=== PATIENT | male | born 1960 | race Caucasian/White ===

== ENCOUNTER 2020-07-26 05:40 | Inpatient (IN) | payer BC, MEDICARE ==
[2020-07-26] MEDS ORDERED: Acetaminophen 500 MG Tab PO ONE (05:45)
[2020-07-26] MEDS ORDERED: Scopolamine 1.5 MG Transdermal Patch TOP SCH (05:45)
[2020-07-26] MEDS ORDERED: Celecoxib 200 MG Cap PO ONE (05:45)
[2020-07-26 06:30] LABS: HEMOGLOBIN A1C 5.3 % (4.5-6.2)
[2020-07-26] MEDS ORDERED: Dextrose 5%-Lactated Ringers 1,000 ML IV SCH ×2 (06:30→10:30)
[2020-07-26] MEDS ORDERED: cefOXitin 2 GM Vial ONE (06:31)
[2020-07-26] MEDS ORDERED: Neostigmine Methylsulfate 1 MG/ML 5 ML Syringe ONE (07:03)
[2020-07-26] MEDS ORDERED: Succinylcholine 200 MG/10 ML MDV ONE (07:03)
[2020-07-26] MEDS ORDERED: Ondansetron 4 MG/2 ML SDV ONE (07:03)
[2020-07-26] MEDS ORDERED: Propofol 200 MG/20 ML SDV ONE (07:03)
[2020-07-26] MEDS ORDERED: Dexamethasone 4 MG/ML SDV ONE (07:03)
[2020-07-26] MEDS ORDERED: Rocuronium 50 MG/5 ML Vial ONE (07:03)
[2020-07-26] MEDS ORDERED: Glycopyrrolate 0.2 MG/ML 5 ML MDV ONE (07:03)
[2020-07-26] MEDS ORDERED: fentaNYL 250 MCG/5 ML SDV ONE ×2 (07:04→07:36)
[2020-07-26] MEDS ORDERED: ceFAZolin 2 GM in Premix Bag 1 BAG IV ONE (07:15)
[2020-07-26] MEDS ORDERED: cefOXitin 2 GM in Sodium Chloride 0.9% 50 ML IV ONE (07:15)
[2020-07-26] MEDS ORDERED: Ketamine 50 MG in Sodium Chloride 0.9% 49.5 ML IV SCH (07:30)
[2020-07-26] MEDS ORDERED: Magnesium Sulfate 5.6 GM in Sodium Chloride 0.9% 250 ML IV ONE (07:30)
[2020-07-26] MEDS ORDERED: Ketamine 500 MG/5 ML MDV IV SCH (07:30)
[2020-07-26] MEDS ORDERED: Magnesium Sulfate 3.5 GM in Sodium Chloride 0.9% 100 ML IV SCH (07:30)
[2020-07-26] MEDS ORDERED: Cyclobenzaprine 10 MG Tab PO PRN (10:26)
[2020-07-26] MEDS ORDERED: Nitroglycerin 0.4 MG Tab.SL SL PRN (10:44)
[2020-07-26] MEDS ORDERED: diphenhydrAMINE 50 MG/ML SDV IVPUSH PRN (11:00)
[2020-07-26] MEDS ORDERED: Insulin Lispro 100 Unit/ML 3 ML KwikPen SUBCUT PRN (11:00)
[2020-07-26] MEDS ORDERED: Calcium Gluconate 10% 1 GM/10 ML SDV IVPUSH PRN (11:00)
[2020-07-26] MEDS ORDERED: HYDROmorphone 0.5 MG/0.5 ML Syringe IVPUSH PRN (11:00)
[2020-07-26] MEDS ORDERED: Ondansetron 4 MG/2 ML SDV IVPUSH PRN (11:00)
[2020-07-26] MEDS ORDERED: 50% Dextrose in Water 50 ML Syringe IVPUSH PRN (11:00)
[2020-07-26] MEDS ORDERED: Acetaminophen 500 MG Tab PO PRN (11:00)
[2020-07-26] MEDS ORDERED: Metoclopramide 10 MG/2 ML SDV IVPUSH PRN (11:00)
[2020-07-26] MEDS ORDERED: HYDROmorphone 1 MG/ML Syringe IV PRN (11:00)
[2020-07-26] MEDS ORDERED: Glucagon,Human Recombinant 1 MG Vial IM PRN (11:00)
[2020-07-26] MEDS ORDERED: hydrOXYzine HCL 100 MG/2 ML SDV IM PRN (11:00)
[2020-07-26] MEDS ORDERED: Labetalol 20 MG/4 ML Syringe IVPUSH PRN (11:00)
[2020-07-26] MEDS: Lactated Ringers 1,000 ML IV SCH (11:23)
[2020-07-26] MEDS: oxyCODONE 5 MG Tab PO PRN ×2 (12:37→18:06)
[2020-07-26] MEDS: Pantoprazole 40 MG Vial IVPUSH SCH (12:38)
[2020-07-26] MEDS: Acetaminophen 500 MG Tab PO SCH ×2 (15:19→22:10)
[2020-07-26] MEDS: cefOXitin 2 GM in Sodium Chloride 0.9% 50 ML IV SCH ×2 (15:19→19:54)
[2020-07-26] MEDS ORDERED: MVI, Adult with Vitamin K 10 ML, Thiamine 200 MG, Zinc/Copper/Manganese/Selenium 1 ML i... IV SCH ×4 (16:00)
[2020-07-26] MEDS: Heparin Sodium 5,000 Units/ML Vial SUBCUT SCH (18:01)
[2020-07-26] MEDS: Venlafaxine 75 MG Tab PO SCH (20:48)
[2020-07-26] MEDS: Carvedilol 12.5 MG Tab PO SCH (20:49)
[2020-07-26] MEDS: Tamsulosin 0.4 MG Cap.ER PO SCH (20:49)
[2020-07-26] MEDS: atorvaSTATin 20 MG Tab PO SCH (20:50)
[2020-07-26] MEDS: ClonazePAM 1 MG Tab PO SCH (21:03)
[2020-07-27] MEDS: Lactated Ringers 1,000 ML IV SCH (00:27)
[2020-07-27] MEDS: oxyCODONE 5 MG Tab PO PRN ×3 (00:31→15:48)
[2020-07-27] MEDS: cefOXitin 2 GM in Sodium Chloride 0.9% 50 ML IV SCH ×3 (01:50→15:42)
[2020-07-27] MEDS ORDERED: Iopamidol 612 MG/ML 50 ML SDV IV PRN (02:44)
[2020-07-27] MEDS: Acetaminophen 500 MG Tab PO SCH ×3 (05:31→22:18)
[2020-07-27] MEDS: Heparin Sodium 5,000 Units/ML Vial SUBCUT SCH ×2 (05:31→18:37)
[2020-07-27] MEDS: Levothyroxine 88 MCG Tab PO SCH (07:38)
[2020-07-27] MEDS ORDERED: Lactated Ringers 1,000 ML IV SCH (08:00)
[2020-07-27] MEDS: SCOPOLAMINE PATCH CHECK TOP SCH (08:38)
[2020-07-27] MEDS: Celecoxib 200 MG Cap PO SCH ×2 (08:45→20:46)
[2020-07-27] MEDS: Carvedilol 12.5 MG Tab PO SCH ×2 (08:45→20:46)
[2020-07-27] MEDS: Venlafaxine 75 MG Tab PO SCH ×2 (08:47→20:49)
[2020-07-27] MEDS: Aspirin 325 MG Tab.EC PO SCH (08:47)
[2020-07-27] MEDS: amLODIPine 5 MG Tab PO SCH (08:55)
[2020-07-27] MEDS: valACYclovir 1,000 MG Tab PO SCH (08:56)
[2020-07-27] MEDS: ClonazePAM 1 MG Tab PO SCH ×2 (10:55→20:54)
[2020-07-27] MEDS: Pantoprazole 40 MG Vial IVPUSH SCH (10:56)
[2020-07-27] MEDS: Lisinopril 20 MG Tab PO SCH (12:07)
[2020-07-27] MEDS ORDERED: MVI, Adult with Vitamin K 10 ML, Thiamine 200 MG, Zinc/Copper/Manganese/Selenium 1 ML i... IV SCH ×4 (16:00)
[2020-07-27] MEDS: atorvaSTATin 20 MG Tab PO SCH (20:50)
[2020-07-27] MEDS: Tamsulosin 0.4 MG Cap.ER PO SCH (20:50)
[2020-07-28] MEDS: Acetaminophen 500 MG Tab PO SCH (05:56)
[2020-07-28] MEDS: Heparin Sodium 5,000 Units/ML Vial SUBCUT SCH (05:56)
[2020-07-28] MEDS ORDERED: Pantoprazole 40 MG Delayed-Release Granules 1 Packet PO SCH (07:30)
[2020-07-28] MEDS: oxyCODONE 5 MG Tab PO PRN (07:37)
[2020-07-28] MEDS: Levothyroxine 88 MCG Tab PO SCH (07:38)
[2020-07-28] MEDS: SCOPOLAMINE PATCH CHECK TOP SCH (08:56)
[2020-07-28] MEDS: Celecoxib 200 MG Cap PO SCH (08:59)
[2020-07-28] MEDS ORDERED: Cyanocobalamin (Vitamin B12) 1,000 MCG/ML SDV IM ONE (09:00)
[2020-07-28] MEDS: Carvedilol 12.5 MG Tab PO SCH (09:00)
[2020-07-28] MEDS: Venlafaxine 75 MG Tab PO SCH (09:01)
[2020-07-28] MEDS: Aspirin 325 MG Tab.EC PO SCH (09:01)
[2020-07-28] MEDS: Lisinopril 20 MG Tab PO SCH (09:02)
[2020-07-28] MEDS: ClonazePAM 1 MG Tab PO SCH (09:02)
[2020-07-28] MEDS: amLODIPine 5 MG Tab PO SCH (09:02)
[2020-07-28] MEDS: valACYclovir 1,000 MG Tab PO SCH (09:03)
--- NOTE | 2020-07-28 17:33 | PN ---
DATE OF SERVICE: 07/27/2020 The patient is postop day 1 from a laparoscopic Miguel-en-Y gastric bypass along with hiatal hernia repair. Currently, he is doing well. Blood sugars have all been below 200 without any specific medication. Urine output has been satisfactory. We will plan to move forward with a step-2 diet today and maximize activity and work with pulmonary toilet. He may be ready for discharge home tomorrow. Daryn Murray MD /[id number]
--- NOTE | 2020-07-29 08:23 | DISCH ---
FINAL DIAGNOSES: 1. Morbid obesity. 2. Marked hepatomegaly. 3. Paraesophageal diaphragmatic hernia. 4. Acute myocardial infarction status post angioplasty with stent. 5. History of hypertension. 6. History of hyperlipidemia. 7. History of obstructive sleep apnea. 8. History of nonalcoholic fatty liver disease. 9. Gastroesophageal reflux disease. 10.Benign prostatic hypertrophy requiring medical management. 11.Type 2 diabetes mellitus. OPERATIVE PROCEDURES: Done on 07/26, diagnostic laparoscopy with: 1. Laparoscopic Miguel-en-Y gastric bypass along with gastroenterostomy. 2. Deshawn-Cut needle liver biopsy. 3. Repair of paraesophageal diaphragmatic hernia. SUMMARY: This 59-year-old male presenting with focal metabolic syndrome including obesity, type 2 diabetes mellitus, hyperlipidemia, hypertension, and fatty liver disease. After preop evaluation and discussion, he wished to proceed with a gastric bypass. This was done along with liver biopsy and repair of associated paraesophageal hernia. Postoperatively, he has done very well. He is on no specific diabetic treatment at this time, and blood sugars are running in the 120s while taking in a full liquid diet. Otherwise, he will be on his usual medications, other than we will hold the Reglan, Protonix, and his vitamins and other supplements. The vitamins and the other supplements will be started after 1st appointment, which will be with Vanna Gutierrez at [facility] on 08/06/2020. He will be instructed in maintaining a blood sugar log over the next few days and bring that to the appointment. At the time of discharge, he is only taking Tylenol for pain. He will be on a step-2 diet i.e. full liquid type diet until the 1st appointment. /[id number]
--- NOTE | 2020-07-29 08:23 | OR ---
DATE OF PROCEDURE: 07/26/2020 SURGEON: Daryn Murray MD PREOPERATIVE DIAGNOSIS: Morbid obesity. POSTOPERATIVE DIAGNOSES: 1. Morbid obesity. 2. Marked hepatomegaly. 3. Paraesophageal diaphragmatic hernia. OPERATIVE PROCEDURES: 1. Laparoscopic Miguel-en-Y gastric bypass along with gastroenterostomy (25480). 2. Deshawn-Cut needle liver biopsy (56441). 3. Repair of paraesophageal diaphragmatic hernia (14977). ANESTHESIA: General. ASSISTANTS: Vanna Gutierrez PA-C and REAGAN [employer] student. INDICATIONS FOR PROCEDURE: This is a 59-year-old male presenting with longstanding morbid obesity and at this point a full-blown metabolic syndrome. Plan is to proceed with a laparoscopic Miguel-en-Y gastric bypass. Potential risks of the procedure including bleeding, infection, injury to underlying viscera, problems with leaks from GI tract staple lines as well as possibility of bowel obstruction over time were gone over, and lastly the possibility of cardiopulmonary, septic, or hemorrhagic complications leading to were discussed, and the patient wishes to proceed. DETAILS OF PROCEDURE: The patient was taken to the operating room and placed in a supine position. After general endotracheal anesthesia was induced, she was converted to a lithotomy position and the abdomen prepped and draped. At 15 cm inferior and 5 cm left of the xiphoid process, a transverse incision was made and the peritoneal cavity entered under direct vision with an Optiview trocar, inflated to 15 mmHg pressure with CO2. The laparoscope was reinserted. No underlying trocar insertion site injuries were seen. Following this, 5 additional trocars were placed across the upper and mid abdomen. Bilateral transversus abdominis plane blocks were placed. The patient was noted to have marked hepatomegaly with liver being grossly fatty infiltrated and significantly enlarged Deshawn-Cut needle biopsy obtained from the left lobe of the liver. Minimal bleeding from the biopsy sites was controlled with electrocautery. The omentum was then divided in the midline up to the level of the transverse colon. This allowed identification of the small bowel to the ligament of Treitz. The small bowel was then traced out 150 cm distal to that point. It was divided transversely with a CHARMAINE stapler. The small bowel was then traced out additional 150 cm where the [id number] enteroenterostomy was accomplished with an internal firing of the Endo-CHARMAINE 60 mm stapler, common opening was then closed transversely with the same stapler, angles anastomosed, and mesenteric defect approximated with some 0 Ethibond sutures along with fibrin sealant. The divided end of the Miguel limb was then brought up through the antecolic position up to the level of the gastroesophageal junction without tension. The liver was then retracted anteriorly. The patient was noted to have a moderate-sized paraesophageal diaphragmatic hernia consistent with the patient's history of significant reflux disease. The hernia was reduced. The peritoneum overlying was incised and reflected downward. An anterior repair of the diaphragmatic hernia was accomplished with 0 Ethibond sutures reinforced with PTFE pledgets. The gastrointestinal balloon catheter was then inflated to 15 mL and pulled up snugly against the EG junction. Gastric wall over the apex balloon was then marked with electrocautery and balloon catheter deflated and pulled up in the esophagus. The lesser omental tissue adjacent to the gastric cardia was then incised allowing dissection behind the stomach at that level. Pouch formation was initiated with CHARMAINE staple firing at the level of cauterized jamia at the gastric cardia and then completed with 2 additional firings of CHARMAINE stapler up to and through the angle of His. Upon completion of the pouch, both staple lines were noted to be intact. The anvil of a 25 mm EEA stapler was attached to a Nixa sump type tube. The latter was brought down through the mouth, taken out through a small opening in the gastric pouch, allowing the anvil likewise to be pulled down to within the gastric pouch. The divided end of the Miguel limb was opened and the main body of the EEA stapler passed several centimeters into the lumen of the small bowel, brought up the anvil and united with it thus creating the gastrojejunostomy. Upon removal of the stapler, double donuts of mucosa were noted within it. The small bowel was closed off with a vascular staple line. Gastrojejunostomy was reinforced with some 3-0 Vicryl seromuscular stitch along with fibrin sealant. A leak test was conducted with injection of 120 mL of air in the gastric pouch while it was submerged with a cefoxitin-containing saline solution. No leaks were identified. A single Bishop- Montemayor drain was then taken out through the left lateral trocar site and positioned adjacent to the gastrojejunostomy and from there up into the splenic fossa. The trocars were removed and the peritoneal cavity deflated. Incisions were closed with some 4-0 Vicryl skin stitch which was also used to fix the drain. The patient was taken to the recovery room in satisfactory condition. Physician assistant project manager, Vanna Gutierrez, played an essential role in assisting in this case, helping to position the patient, retract structures as needed, as well as suturing and cutting sutures when indicated. Her presence improved patient safety and decreased the operative time. Daryn Murray MD /[id number]
--- NOTE | 2020-07-29 09:27 | CR ---
UGI Limited HISTORY: Postbariatric surgery FINDINGS: Patient swallowed water-soluble contrast. Upright views of the abdomen show no evidence of extravasation or obstruction. There is a surgical drain in the left upper quadrant. There is some secondary and tertiary contractions in the esophagus. IMPRESSION: Status post bariatric surgery No extravasation or obstruction seen
== END 2020-07-28 11:05 | disposition home or self-care (01) | DRG 403 ==
LOC: JP.MS 05:40 → JP.SDS 05:40 → EDSTATUS 07:30 → JP.MS 08:45
PROVIDERS: ADMIT Surgery; ATTEND Surgery
PROC: 0D164ZA Bypass Stomach to Jejunum, Percutaneous Endoscopic Approach (ICD-10-PCS; principal; 2020-07-26)
PROC: 0FB24ZX Excision of Left Lobe Liver, Percutaneous Endoscopic Approach, Diagnostic (ICD-10-PCS; 2020-07-26)
PROC: 0BQT4ZZ Repair Diaphragm, Percutaneous Endoscopic Approach (ICD-10-PCS; 2020-07-26)
DX: E66.01 Morbid (severe) obesity due to excess calories (principal); R16.0 Hepatomegaly, not elsewhere classified; K44.9 Diaphragmatic hernia without obstruction or gangrene; K21.9 Gastro-esophageal reflux disease without esophagitis; E78.5 Hyperlipidemia, unspecified; E87.6 Hypokalemia; I10 Essential (primary) hypertension; E11.9 Type 2 diabetes mellitus without complications; Z95.5 Presence of coronary angioplasty implant and graft; Z90.49 Acquired absence of other specified parts of digestive tract; Z95.1 Presence of aortocoronary bypass graft; Z79.891 Long term (current) use of opiate analgesic; Z79.84 Long term (current) use of oral hypoglycemic drugs; Z79.890 Hormone replacement therapy; Z79.899 Other long term (current) drug therapy; Z88.1 Allergy status to other antibiotic agents; Z68.41 Body mass index [BMI] 40.0-44.9, adult
CPT/HCPCS: 36415; 74240; 74240-26; 82962; 83036; 86850; 86900; 86901; 94762; A9270-GY; C9113; J0171; J0330; J0694; J1100; J1170; J1200; J1644; J1815; J2405; J2704; J2710; J2795; J3010; J3411; J3420; J3475; J3490; J7050; J7120; J7121; Q9967

== ENCOUNTER 2020-07-30 13:20 | Observation (INO) | payer BC, MEDICARE ==
[2020-07-30] MEDS ORDERED: Acetaminophen 325 MG Tab PO PRN (13:51)
[2020-07-30] MEDS ORDERED: Acetaminophen 650 MG Supp RECTAL PRN (13:51)
[2020-07-30] MEDS ORDERED: Ondansetron 4 MG/2 ML SDV IVPUSH PRN (13:52)
[2020-07-30] MEDS ORDERED: Sodium Chloride 0.9% 10 ML Syringe FLUSH PRN (13:53)
[2020-07-30] MEDS ORDERED: Iopamidol 612 MG/ML 500 ML Multipack Bottle IV ONE (14:39)
[2020-07-30] MEDS ORDERED: Nitroglycerin 0.4 MG Tab.SL SL PRN (14:50)
[2020-07-30] MEDS ORDERED: Methocarbamol 500 MG Tab PO PRN (14:50)
[2020-07-30] MEDS: Pantoprazole 40 MG Vial IV SCH ×2 (14:55→20:18)
--- NOTE | 2020-07-30 15:00 | PCM.HP.2 ---
H&P History of Present Illness - General Date of Service: 07/30/20 Admit Problem/Dx: Admission Diagnosis/Problem Admission Diagnosis/Problem Bleeding from anus Source of Information: Patient History Limitations: Reports: No Limitations - History of Present Illness Initial Comments - Free Text/Narative: Aj was discharged on 07/28/2020 post op day 2 after having a RNY Gastric Bypass Surgery on 07/26/2020. When he got home on Wednesday he started having loose stools until around 2:00 pm on Wednesday the next day. BMs stopped from 2:00 pm until around 9:00 pm then he had a dark almost black/blueberry wine colored slimy pudding consistency stool. Today he has continued to have 4 more loose stools the same black dark red color. Feeling weak and light headed. He was able to drink about 20 oz of water and had a small container of sugar free pudding. Having mild abdominal cramping. Blood sugars range between 112 - 132. - Related Data Allergies/Adverse Reactions: Allergies Allergy/AdvReac Type Severity Reaction Status Date / Time azithromycin [From Zithromax] Allergy Swelling Verified 07/23/20 13:44 Home Medications: Home Meds Acetaminophen/Codeine [Tylenol with Codeine No.3 300MG/30MG] 1 tab PO BID PRN 07/23/20 [History] Celecoxib [CeleBREX] 200 mg PO DAILY 07/23/20 [History] Ezetimibe [Zetia] 10 mg PO DAILY 07/23/20 [History] Levothyroxine [Synthroid] 88 mcg PO DAILY 07/23/20 [History] Nitroglycerin 0.4 mg SL ASDIRECTED PRN 07/23/20 [History] Potassium Chloride 10 meq PO DAILY 07/23/20 [History] Tamsulosin [Tamsulosin 24 Hr] 0.4 mg PO DAILY 07/23/20 [History] Testosterone Cypionate [Depo-Testosterone] 200 mg IM ASDIRECTED 07/23/20 [History] Venlafaxine [Effexor XR] 300 mg PO DAILY 07/23/20 [History] amLODIPine Besylate [Norvasc] 10 mg PO DAILY 07/23/20 [History] atorvaSTATin [Lipitor] 80 mg PO BEDTIME 07/23/20 [History] buPROPion [Wellbutrin] 75 mg PO DAILY 07/23/20 [History] carvediloL [Carvedilol] 50 mg PO BID 07/23/20 [History] clonazePAM [Klonopin] 1 mg PO BID 07/23/20 [History] hydroCHLOROthiazide [Hydrochlorothiazide] 50 mg PO DAILY 07/23/20 [History] lisinopriL [Zestril] 40 mg PO DAILY 07/23/20 [History] methocarbamoL [Robaxin] 1,000 mg PO TID PRN 07/23/20 [History] valACYclovir [Valtrex] 1,000 mg PO DAILY 07/23/20 [History] Past Medical History HEENT History: Reports: Otitis Media Cardiovascular History: Reports: High Cholesterol, Hypertension, ID, Stents Respiratory History: Reports: Sleep Apnea Gastrointestinal History: Reports: GERD Genitourinary History: Reports: Prostate Disorder Musculoskeletal History: Reports: Arthritis, Back Pain, Chronic Neurological History: Reports: Headaches, Chronic Psychiatric History: Reports: Anxiety, Depression Endocrine/Metabolic History: Reports: Diabetes, Type II, Hypothyroidism, Obesity/BMI 30+ Hematologic History: Reports: Blood Transfusion(s) Oncologic (Cancer) History: Reports: Squamous Cell Carcinoma, Other (See Below) Other Oncologic History: tumor removed from pituitary gland 2019 Dermatologic History: Reports: None - Infectious Disease History Infectious Disease History: Reports: Chicken Pox, Measles - Past Surgical History HEENT Surgical History: Reports: None Cardiovascular Surgical History: Reports: Carotid Stents Respiratory Surgical History: Reports: None GI Surgical History: Reports: Cholecystectomy, Colonoscopy, EGD, Hernia, Inguinal, Other (See Below) Other GI Surgeries/Procedures: RNY Male Surgical History: Reports: None Endocrine Surgical History: Reports: None Neurological Surgical History: Reports: Other (See Below) Other Neurological Surgeries/Procedures: Tumor removal from pituitary gland. Musculoskeletal Surgical History: Reports: Carpal Tunnel Dermatological Surgical History: Reports: Skin Biopsy Social & Family History - Family History Family Medical History: No Pertinent Family History - Tobacco Use Tobacco Use Status *Q: Never Tobacco User Second Hand Smoke Exposure: No - Caffeine Use Caffeine Use: Reports: None - Recreational Drug Use Recreational Drug Use: No H&P Review of Systems - Review of Systems: Review Of Systems: See Below General: Reports: Weakness, Fatigue HEENT: Reports: No Symptoms Pulmonary: Reports: No Symptoms Cardiovascular: Reports: No Symptoms Gastrointestinal: Reports: Other (See Chief Complaint ) Genitourinary: Reports: No Symptoms Musculoskeletal: Reports: No Symptoms Skin: Reports: No Symptoms Psychiatric: Reports: No Symptoms Neurological: Reports: No Symptoms Hematologic/Lymphatic: Reports: Anemia, Other (Hemoglobin of 11.6 down from 15.4 on 07/16/2020) Immunologic: Reports: No Symptoms Exam - Exam Exam: See Below - Vital Signs Vital Signs: Last Vital Signs Temp 97.5 F 07/30/20 13:53 Pulse 114 H 07/30/20 13:53 Resp 18 07/30/20 13:53 BP 119/71 07/30/20 13:53 Pulse Ox 98 07/30/20 13:53 Weight: 267 lb - Exam Quality Assessment: DVT Prophylaxis General: Alert, Oriented, Mild Distress HEENT: PERRLA, Conjunctiva Clear Neck: Supple, Trachea Midline Lungs: Clear to Auscultation, Normal Respiratory Effort Cardiovascular: Regular Rate, Regular Rhythm GI/Abdominal Exam: Normal Bowel Sounds, Soft, Non-Tender, No Distention, Other (sutures intact. ) (Male) Exam: Deferred Rectal (Males) Exam: Deferred Back Exam: Normal Inspection, Full Range of Motion Extremities: Normal Inspection, Normal Range of Motion, No Pedal Edema Skin: Warm, Dry, Intact Neurological: Cranial Nerves Intact, Reflexes Equal Bilateral Neuro Extensive - Mental Status: Alert, Oriented x3, Normal Mood/Affect, Normal Cognition Neuro Extensive - Motor, Sensory, Reflexes: CN II-XII Intact, Normal Gait Psychiatric: Alert, Normal Affect, Normal Mood Sepsis Event Note - Focused Exam Vital Signs: Vital Signs Temp Pulse Resp BP Pulse Ox 07/30/20 13:53 97.5 F 114 H 18 119/71 98 - Problem List (1) Rectal bleeding SNOMED Code(s): 26950501 ICD Code: K62.5 - HEMORRHAGE OF ANUS AND RECTUM Status: Acute Current Visit: Yes Problem List Initiated/Reviewed/Updated: Yes Orders Last 24hrs: Active Orders 24 hr Category Date Time Status Patient Status [ADT] Routine ADT 07/30/20 13:20 Active Communication Order [RC] ROUTINE Care 07/30/20 14:03 Active Intake and Output [RC] QSHIFT Care 07/30/20 13:54 Active Oxygen Therapy [RC] PRN Care 07/30/20 13:53 Active Peripheral IV Care [RC] . DIRECTED Care 07/30/20 13:56 Active Up ad Leta [RC] ASDIRECTED Care 07/30/20 13:53 Active VTE/DVT Education [RC] Per Unit Routine Care 07/30/20 13:53 Active Vital Signs [RC] Q4H Care 07/30/20 13:53 Active Bariatric Diet [DIET] Diet 07/30/20 Dinner Ordered Abdomen Pelvis w Cont [CT] Stat Exams 07/30/20 13:57 Ordered CBC W/O DIFF,HEMOGRAM [HEME] Routine Lab 07/30/20 18:00 Ordered CBC W/O DIFF,HEMOGRAM [HEME] Routine Lab 07/31/20 04:00 Ordered COMPREHENSIVE METABOLIC PN,CMP [CHEM] Routine Lab 07/31/20 04:00 Ordered CORONAVIRUS COVID-19 AYO [MOLEC] Routine Lab 07/30/20 14:49 Received CREATININE W/GFR [CHEM] Stat Lab 07/30/20 14:46 Ordered MAGNESIUM [CHEM] Routine Lab 07/31/20 04:00 Ordered PHOSPHORUS [CHEM] Routine Lab 07/31/20 04:00 Ordered RED BLOOD CELLS LP [BBK] Routine Lab 07/30/20 14:02 Ordered TYPE AND SCREEN [BBK] Routine Lab 07/30/20 14:02 Ordered Acetaminophen [TylenoL] Med 07/30/20 13:51 Active 650 mg PO Q4H PRN Acetaminophen [Tylenol] Med 07/30/20 13:51 Active 650 mg RECTAL Q4H PRN ClonazePAM [KlonoPIN] Med 07/30/20 21:00 Ordered 1 mg PO BID Dextrose 5%-Lactated Ringers 1,000 ml Med 07/30/20 14:00 Active IV ASDIRECTED Levothyroxine [Synthroid] Med 07/31/20 09:00 Ordered 88 mcg PO DAILY Nitroglycerin [Nitrostat] Med 07/30/20 14:50 Ordered 0.4 mg SL ASDIRECTED PRN Ondansetron [Zofran] Med 07/30/20 13:52 Active 4 mg IVPUSH Q4H PRN Pantoprazole [ProTONIX IV] Med 07/30/20 14:00 Active 40 mg IV BID Sodium Chloride 0.9% [Saline Flush] Med 07/30/20 13:53 Active 10 ml FLUSH ASDIRECTED PRN Tamsulosin [Flomax] Med 07/31/20 09:00 Ordered 0.4 mg PO DAILY Venlafaxine [Effexor XR] Med 07/31/20 09:00 Ordered 300 mg PO DAILY amLODIPine Besylate [Norvasc] Med 07/31/20 09:00 Ordered 10 mg PO DAILY buPROPion [Wellbutrin] Med 07/31/20 09:00 Ordered 75 mg PO DAILY carvediloL [Carvedilol] Med 07/30/20 21:00 Ordered 50 mg PO BID lisinopriL [Zestril] Med 07/31/20 09:00 Ordered 40 mg PO DAILY methocarbamoL [Robaxin] Med 07/30/20 14:50 Ordered 1,000 mg PO TID PRN valACYclovir [Valtrex] Med 07/31/20 09:00 Ordered 1,000 mg PO DAILY Peripheral IV Insertion Adult [OM.PC] Routine Oth 07/30/20 13:53 Ordered Sequential Compression Device [OM.PC] Per Unit Routine Oth 07/30/20 13:55 Ordered Resuscitation Status Routine Resus Stat 07/30/20 13:53 Ordered Medication Orders Acetaminophen (Tylenol) 650 mg PO Q4H PRN PRN Reason: ANALGESIA/FEVER Acetaminophen (Tylenol) 650 mg RECTAL Q4H PRN PRN Reason: ANALGESIA/FEVER Bupropion HCl (Wellbutrin) 75 mg PO DAILY BRIA Clonazepam (Klonopin) 1 mg PO BID BRIA Dextrose/Lactated Ringer's (Dextrose 5%-Lactated Ringers) 1,000 mls @ 125 mls/hr IV ASDIRECTED BRIA Levothyroxine Sodium (Synthroid) 88 mcg PO DAILY BRIA Methocarbamol (Robaxin) 1,000 mg PO TID PRN PRN Reason: Pain Nitroglycerin (Nitrostat) 0.4 mg SL ASDIRECTED PRN PRN Reason: Chest Pain Non-Formulary Medication (Amlodipine Besylate [Norvasc]) 10 mg PO DAILY [facility] Non-Formulary Medication (Carvedilol [Carvedilol]) 50 mg PO BID [facility] Non-Formulary Medication (Lisinopril [Zestril]) 40 mg PO DAILY [facility] Non-Formulary Medication (Venlafaxine [Effexor Xr]) 300 mg PO DAILY [facility] Ondansetron HCl (Zofran) 4 mg IVPUSH Q4H PRN PRN Reason: Nausea Pantoprazole Sodium (Protonix Iv) 40 mg IV BID [facility] Last Admin: 07/30/20 14:55 Dose: 40 mg Documented by: VENICE Sodium Chloride (Saline Flush) 10 ml FLUSH ASDIRECTED PRN PRN Reason: Keep Vein Open Tamsulosin HCl (Flomax) 0.4 mg PO DAILY [facility] Valacyclovir HCl (Valtrex) 1,000 mg PO DAILY [facility] Assessment/Plan Comment:: Assessment: Rectal Bleeding Post Operative State - RNY Gastric Bypass Surgery Morbid Obesity BMI 43 Diabetes II Hyperlipidemia Sleep Apnea Fatty Liver disease BPH Degenerative Joint Disease Angioplasty with Stent SP Pituitary Macroadenoma Removal Plan: Admit See orders in EMR Plan hospitalization of 2 nights and 3 days pending results of CT scan and rectal bleedin Vanna Christopher 07/30/2020 - Mortality Measure Prognosis:: Good
[2020-07-30] MEDS: Dextrose 5%-Lactated Ringers 1,000 ML IV SCH (16:15)
--- NOTE | 2020-07-30 16:18 | CRLCT ---
INDICATION: Status post Miguel-en-Y July 26, 2020, rectal bleeding TECHNIQUE: CT abdomen and pelvis acquired with 144 cc Isovue 350 IV contrast. COMPARISON: None FINDINGS: Lower chest: Unremarkable. Liver: Hepatic steatosis. Spleen: Unremarkable. Pancreas: Unremarkable. Gallbladder and bile ducts: S/p cholecystectomy. Adrenal glands: Unremarkable. Kidneys: Simple cysts on both kidneys. GI tract: Status post gastric bypass procedure. Colonic diverticulosis. Appendix is not seen. Vascular structures: Unremarkable. Lymph nodes: Unremarkable. Miscellaneous: Unremarkable. No free air or significant free fluid. Pelvic Organs: Enlarged prostate gland. Bones: Unremarkable for age. IMPRESSION: No acute intra-abdominal process. Colonic diverticulosis without evidence for diverticulitis. Status post gastric bypass procedure. Hepatic steatosis. Enlarged prostate gland. Please note that all CT scans at this facility use dose modulation, iterative reconstruction, and/or weight-based dosing when appropriate to reduce radiation dose to as low as reasonably achievable. Dictated by Madelyn Xie MD @ Jul 30 2020 4:07PM Signed by Dr. Madelyn Xie @ Jul 30 2020 4:15PM
[2020-07-30] MEDS: Carvedilol 12.5 MG Tab PO SCH (20:18)
[2020-07-30] MEDS: ClonazePAM 1 MG Tab PO SCH (20:22)
[2020-07-30] MEDS ORDERED: Melatonin 3 MG Tab PO PRN (20:34)
[2020-07-31] MEDS: Dextrose 5%-Lactated Ringers 1,000 ML IV SCH ×2 (00:18→07:47)
[2020-07-31] MEDS ORDERED: NACL IV ONE ×2 (05:25)
[2020-07-31] MEDS ORDERED: POTASSIUM PHOS IV ONE ×2 (05:25)
[2020-07-31] MEDS: Potassium Phos in 0.9 % NaCl 15 MMOL in Premix Bag 1 BAG IV SCH ×6 (05:57→13:16)
[2020-07-31] MEDS ORDERED: Levothyroxine 88 MCG Tab PO SCH (07:30)
[2020-07-31] MEDS ORDERED: Tamsulosin 0.4 MG Cap.ER PO SCH (09:00)
[2020-07-31] MEDS ORDERED: amLODIPine 5 MG Tab PO SCH (09:00)
[2020-07-31] MEDS ORDERED: Potassium Chloride 10 MEQ Cap.ER PO SCH (09:00)
[2020-07-31] MEDS ORDERED: Venlafaxine 75 MG Cap.ER PO SCH (09:00)
[2020-07-31] MEDS ORDERED: Lisinopril 20 MG Tab PO SCH (09:00)
[2020-07-31] MEDS ORDERED: valACYclovir 1,000 MG Tab PO SCH (09:00)
[2020-07-31] MEDS: Carvedilol 12.5 MG Tab PO SCH (10:05)
[2020-07-31] MEDS: Phosphorus #1 250 MG Tab PO SCH ×2 (10:05→13:18)
[2020-07-31] MEDS: ClonazePAM 1 MG Tab PO SCH (10:11)
[2020-07-31] MEDS: Pantoprazole 40 MG Vial IV SCH (10:16)
--- NOTE | 2020-07-31 10:26 | DISCH ---
ADMISSION DIAGNOSES: Rectal bleeding, status post Miguel-en-Y gastric bypass surgery 07/26/2020, morbid obesity, hyperlipidemia, obstructive sleep apnea, fatty liver, BPH, degenerative joint disease, type 2 diabetes mellitus, and status post angioplasty with stent. DISCHARGE DIAGNOSES: Resolution of rectal bleeding. Hemoglobin 9.3. HISTORY: Baljinder Andersen is a pleasant 59-year-old male. He had gastric bypass surgery on 07/26/2020. He was discharged on Wednesday07/28/2020. He developed loose stools after he got home and it continued until 07/29/2020, around 2 p.m. He had a large loose stool around 9 p.m. Wednesday evening that was dark, almost black, blueberry wine colored, and he persisted to have 4 more stools. He was seen in the clinic and was admitted for observation. Hemoglobin in the clinic was 11.6, and on 07/16/2020, hemoglobin was 15.4. He had a total of 3 dark stools. Hemoglobin was 9.3 and potassium 2.9. He was given K-Phos IV and 2 Neutra-Phos pills. Baljinder was able to be discharged to home on 07/31/2020. PHYSICAL EXAMINATION: GENERAL: Baljinder Andersen is a 59-year-old male. VITAL SIGNS: Height 5 feet 6 inches, weight is 267 pounds, BMI is 43.1. TPR is 96.5, 76, 18, blood pressure 121/81. HEENT: Negative. NECK: Supple. HEART: Regular rate and rhythm. LUNGS: Clear. ABDOMEN: Sutures intact. Incisions look good. Abdominal binder is on. EXTREMITIES: Without peripheral edema. DISPOSITION: Discharged to home. CONDITION: Stable and improving. FOLLOWUP: Appointment with REAGAN Cha on 08/06/2020 at the same time that he was scheduled when he left the hospital. Check a CBC and CMP at the time of appointment. DIET: Step 2 gastric bypass diet with no cereal until 08/10/2020. ACTIVITY: No lifting greater than 10 pounds for [address] for 1 [address]. DISCHARGE INSTRUCTIONS: Shower/bathing: May shower. Keep operative site clean and dry. Notify provider if any fever, increased pain, swelling, drainage, nausea, vomiting. SPECIAL INSTRUCTION: 1. Any increase in blood and bowel movements, call hospital or clinic. 2. On 08/02/2020, go to clinic and get labs drawn. 3. Use incentive spirometer 10 times every hour while awake until first postop appointment. /[id number]
== END 2020-07-31 15:25 | disposition home or self-care (01) ==
LOC: JP.MS 13:20 → UNDOADMIN 13:28 → JP.MS 13:28
PROVIDERS: ADMIT Physician Assistant Medical; ATTEND Surgery
DX: K95.89 Other complications of other bariatric procedure (principal); R19.7 Diarrhea, unspecified; E78.00 Pure hypercholesterolemia, unspecified; I10 Essential (primary) hypertension; I25.2 Old myocardial infarction; E11.9 Type 2 diabetes mellitus without complications; E03.9 Hypothyroidism, unspecified; E66.01 Morbid (severe) obesity due to excess calories; G47.30 Sleep apnea, unspecified; K76.0 Fatty (change of) liver, not elsewhere classified; Z20.822 Contact with and (suspected) exposure to COVID-19; Z88.1 Allergy status to other antibiotic agents; Z79.899 Other long term (current) drug therapy; Z79.890 Hormone replacement therapy; Z68.41 Body mass index [BMI] 40.0-44.9, adult
CPT/HCPCS: 36415; 74177; 80053; 82565; 82962; 83735; 84100; 85027; 86850; 86900; 86901; 86920; 86922; 96365; 96366; 96375; 96376; A9270-GY; C9113; G0378; G0379; J7121; Q9967; U0002